=== PATIENT | female | born 1950 | race Caucasian/White ===

== ENCOUNTER 2021-11-15 09:12 | Emergency (ER) | payer MEDICARE, SELFPAY ==
--- NOTE | ~2021-11-15 | US_ITS ---
EXAMINATION: US VENOUS ULTRASOUND WITH DOPPLER LOWER EXTREMITY, LEFT CLINICAL INFORMATION: Knee pain and calf swelling. COMPARISON: None TECHNIQUE: Ultrasound of the deep veins is performed from the hip to the calf with compression sonography and color and pulse Doppler assessment. Spectral analysis with color-flow imaging is performed. FINDINGS: There is normal venous compression and respiratory variation and augmented flow. The visualized common femoral vein, superficial femoral vein, profunda femoral vein, popliteal vein, and the trifurcation region shows no evidence of deep venous thrombosis. There is no significant popliteal fossa cyst. If the patient's symptoms persist, followup ultrasound in 5 days 7 days might be of value to exclude proximal propagation from a non-visualized calf vein. US/US venous duplex LE LT IMPRESSION: No DVT demonstrated in the left lower extremity.
--- NOTE | ~2021-11-15 | XR_ITS ---
EXAMINATION: XR KNEE, LEFT CLINICAL INFORMATION: Left knee pain COMPARISON: None TECHNIQUE: Four views of the left knee. FINDINGS: The tricompartment joint space is maintained normal. There is mild suprapatellar joint effusion. No loose bodies of bony erosive changes. There is anterior superior patellar enthesophyte. Also visualized is small calcification adjacent to the lateral femoral condyle and the fibular head likely old injury from the lateral collateral ligament. XR/XR knee LT 4V IMPRESSION: No acute fracture or dislocation. Calcification along the lateral femoral condyle and lateral fibular head likely old tibiofibular ligament injury. Anterior superior patellar enthesophyte. Mild suprapatellar joint effusion.
[2021-11-15 10:12] VITALS: BP 146/78; PULSE 83; RESP 18; TEMP 37.2; O2SAT 97; BMI 31.8
--- NOTE | 2021-11-15 11:05 | ED.LOWEXIN ---
HPI - Extremity Injury (Lower) General Chief Complaint: Extremity Injury, Lower Stated Complaint: knee pain Time Seen by Provider: 11/15/21 10:50 Source: patient Mode of arrival: ambulatory Limitations: no limitations History of Present Illness HPI Narrative: 71 years old female came in for evaluation of left knee and left leg pain. Patient was taking Eliquis for atrial fibrillation, patient is status post ablation and Eliquis was discontinued by her primary doctor last dose the patient took 3 days ago, patient started to have left knee/left leg pain for the past 3 days, declined any prolonged immobilization, no swelling, no lower extremities injury or trauma. No chest pain, no shortness of breath. Related Data Allergies Allergy/AdvReac Type Severity Reaction Status Date / Time No Known Allergies Allergy Verified 11/15/21 10:12 Review of Systems Review of Systems: All other systems are reviewed and are negative Constitutional: Reports as per HPI and Reports no additional constitutional complaints Eyes: Reports as per HPI and Reports no additional eye complaints Reports system reviewed and no additional complaints, except as documented Cardiovascular: Reports as per HPI and Reports no additional cardiovascular complaints Respiratory: Reports as per HPI and Reports no additional respiratory complaints Gastrointestinal: Reports as per HPI and Reports no additional gastrointestinal complaints Genitourinary: Reports no additional female genitourinary complaints Musculoskeletal: Reports no additional musculoskeletal complaints Skin/Breast: Reports system reviewed and no additional complaints, except as docu Psychiatric: Reports no additional psychiatric complaints Endocrine: Reports no additional endocrine complaints Hematologic/Lymphatic: Reports no additional hematologic/lymphatic complaints Allergic/Immunologic: Reports no additional allergic/immunologic complaints Reports system reviewed and no additional complaints, except as documented and Reports Abnormal speech present [facility] Social History Social History Alcohol intake: never Patient Tobacco Use Status: Never used Tobacco Use of substances other than those prescribed or required for medical reasons: No Advance Directives: No Advance Directives Information Provided: No Physical Exam Vital Signs: Vital Signs: Last Vital Signs Temp 98.1 F 11/15/21 11:40 Pulse 65 11/15/21 11:40 Resp 18 11/15/21 11:40 BP 132/76 11/15/21 11:40 Pulse Ox 97 11/15/21 11:40 BMI result Body Mass Index 31.8 Vital signs have been reviewed as appeared to be correct. Blood pressure normal. Heart rate normal. Respiration rate normal. Temperature normal. Oxygen saturation normal. Appearance: Alert. Oriented X3. No acute distress. Head: Normal external exam. Normocephalic. Atraumatic. No Walton signs noted. No raccoon eyes noted Eyes: PERRLA. EOMI. Conjunctiva and sclera normal. Eyelids normal. ENT: TM's Normal. Pharynx normal. Uvula midline. Moist mucous membranes. No trismus noted. No drooling noted. No muffled voice noted. Neck: Normal inspection. Neck supple. FROM. No adenopathy. Thyroid Normal. No meningeal signs. No neck mass noted. CVS: Normal heart rate and rhythm. Heart sound normal. No murmurs noted. Pulses normal throughout. Respiratory: No respiratory distress. Painless inspiration. Breath sounds normal. No wheezes/rales/rhonchi noted. Chest nontender. No accessory muscle usage noted or decreased air movement noted. Abdomen: Soft and nontender. Bowel sounds normal in all 4 quadrants. No distention noted. No organomegaly noted. No visible injury noted. Back: No CVA tenderness. Full range of motion noted. Skin: Skin warm and dry. Normal skin color. Normal skin turgor. No rashes/lesions/lacerations noted. Extremities: No lower extremity edema. Extremities exhibit normal range of motion. Extremities nontender. Neuro: Oriented X 3. Cranial nerve exam: II-XII are grossly intact No motor deficit. No sensory deficit. Reflexes normal. Course Course Course Narrative: Assessment and plan. 71-year-old female came in with left lower extremities pain after Eliquis was discontinued was a concern of DVT. Patient had a ultrasound of her left lower extremities showed no DVT, patient also had left knee x-ray shows no acute pathology. Will discharge to follow-up with PCP and use Tylenol if needed for pain. MDM - Extremity Injury (Lower) Imaging Data Left leg ultrasound: Attestation: I personally reviewed and interpreted this imaging study as follows: Radiologist's impression: No DVT. Left knee x-ray: Attestation: I personally reviewed and interpreted this imaging study as follows: Radiologist's impression: No acute fracture or dislocation. ?Calcification along the lateral femoral condyle and lateral fibular head likely old tibiofibular ligament injury. ?Anterior superior patellar enthesophyte. Mild suprapatellar joint effusi Discharge Plan Discharge Clinical Impression: Arthralgia of knee, left Patient Disposition: Home, Self-Care Instructions: Arthralgia (ED) Referrals: Elva Velasquez MD [Primary Care Provider] - 2 days
[2021-11-15 11:40] VITALS: BP 132/76; PULSE 65; RESP 18; TEMP 36.7; O2SAT 97
--- NOTE | 2021-11-15 11:51 | PC.NURSE ---
pt a&ox3, vss, c/o new left back on knee pain starting around 2 weeks ago. pt doesn't have a correlating reason for the pain, unknown cause. xrs obtained, report pending.
== END 2021-11-15 12:25 | disposition home or self-care (01) ==
PROVIDERS: Emergency Provider Emergency Medicine; PCP Internal Medicine
DX: M25.562 Pain in left knee (principal); M79.605 Pain in left leg
CPT/HCPCS: 73564; 93971; 99284

== ENCOUNTER 2024-06-27 09:42 | Outpatient (REF) | payer MEDICARE, SELFPAY ==
--- NOTE | ~2024-06-27 | XR_ITS ---
EXAMINATION: XR KNEE, RIGHT CLINICAL INFORMATION: Right knee pain. COMPARISON: None available. TECHNIQUE: Four views of the right knee. FINDINGS: Mild medial compartment joint space narrowing. Tricompartmental marginal osteophytes. No acute fracture or dislocation. No concerning lytic or blastic osseous lesion. Small joint effusion. Superior patellar enthesophytes. XR/XR knee RT 4V IMPRESSION: [id number] tricompartmental osteoarthritis. Small joint effusion. Electronically signed by: Keo Pollack MD 06/27/2024 11:34 AM ROXANNE
== END 2024-06-27 09:43 | disposition home or self-care (01) ==
LOC: HO.HMGCX 09:42
PROVIDERS: PCP Internal Medicine; Visit Provider Nurse Practitioner Family
DX: M25.561 Pain in right knee (principal); S86.911A Strain of unspecified muscle(s) and tendon(s) at lower leg level, right leg, initial encounter
CPT/HCPCS: 73564; 99212

== ENCOUNTER 2024-06-27 09:42 | Outpatient (AMB) | payer MEDICARE, SELFPAY ==
[2024-06-27 09:45] VITALS: BP 128/76; PULSE 70; O2SAT 96
--- NOTE | 2024-06-27 09:45 | MHC.OFFWIV ---
Intake Vital Signs 06/27/24 09:45 Height 5 ft 3 in BP 128/76 Blood Pressure Location Rt brachial Position Sitting Pulse 70 Pulse Source Pulse Oximeter Pulse Oximetry (%) 96 Oxygen Delivery Method Room Air Intake Visit Reasons: [employer] Rt knee pain Intake Note: pt is here for right knee pain Patient Tobacco Use Status: Never used Tobacco Allergies No Known Allergies Allergy (Verified 06/27/24 09:46) Do you need a note to return to daycare/school/sports/work: No HPI HPI Comments History of Present Illness Details 73 y/o female patient who presents to the walk in clinic with c/o right knee pain since Sun. Denies injury or trauma. [facility] Social History Alcohol intake: never Patient Tobacco Use Status: Never used Tobacco Review of Systems Const All systems reviewed & are unremarkable except as noted in HPI and below Physical Exam Vital Signs: Last Vital Signs Pulse 70 06/27/24 09:45 BP 128/76 06/27/24 09:45 Pulse Ox 96 06/27/24 09:45 Oxygen Delivery Method Room Air 06/27/24 09:45 Const General: cooperative and no acute distress Nutritional Appearance: overweight Orientation/consciousness: patient oriented x3 Neuro General: patient oriented x3 and moves all extremities Gait exam (Neuro): Shuffling gait present (due to pain right knee) Extrem Right lower extremity: knee (Limited ROM due to pain) Details: tenderness Location: of the patella and of the lateral joint line; no swelling Left lower extremity: normal to inspection and full ROM Psych Speech and movement: Normal speech and movement present Assessment & Plan Assessment & Plan (1) Strain of right knee: Code(s): S86.911A - Strain of unspecified muscle(s) and tendon(s) at lower leg level, right leg, initial encounter Qualifiers: Encounter type: initial encounter Qualified Code(s): S86.911A - Strain of unspecified muscle(s) and tendon(s) at lower leg level, right leg, initial encounter Plan: Knee Brace provided. Ordered Xray knee IceHot Rest joint. NSAIDs for pain relief. Medications: New lidocaine 5% leave on most painful area for up to 12 hrs 1 patch topical DAILY 30 ea 0RF S86.911A - Strain of unspecified muscle(s) and tendon(s) at lower leg level, right leg, initial encounter meloxicam 7.5 mg PO DAILY 20 tabs 0RF S86.911A - Strain of unspecified muscle(s) and tendon(s) at lower leg level, right leg, initial encounter acetaminophen 1,000 mg (2 x 500 mg) PO Q6H PRN 60 caps 0RF pain S86.911A - Strain of unspecified muscle(s) and tendon(s) at lower leg level, right leg, initial encounter Coding Level of Care Code Est Pt Level 4 (69568) Diagnoses Strain of right knee, initial encounter S86.911A Encounter type: initial encounter Time Spent (min) 20
== END 2024-06-27 10:56 | disposition home or self-care (01) ==
PROVIDERS: PCP Internal Medicine; Visit Provider Nurse Practitioner Family
DX: S86.911A Strain of unspecified muscle(s) and tendon(s) at lower leg level, right leg, initial encounter (principal)

== ENCOUNTER 2025-02-06 14:58 | Emergency (ER) | payer MEDICARE, SELFPAY ==
--- NOTE | ~2025-02-06 | US_ITS ---
CLINICAL HISTORY: B L swelling Venous duplex ultrasound bilateral lower extremity Comparison: None provided Findings: The visualized deep veins are fully compressible with normal Doppler color flow and spectral tracings. No popliteal cyst. IMPRESSION: 1. Negative for bilateral lower extremity deep vein thrombosis. This document has been electronically signed by: Virginia Mccartney MD on 02/06/2025 17:52:05
[2025-02-06 15:05] VITALS: BP 135/57; PULSE 74; RESP 16; TEMP 36.3; O2SAT 97; BMI 26.6
--- NOTE | 2025-02-06 15:05 | ED_ITS ---
HPI - General Adult General Chief complaint: Extremity Injury, Lower Stated complaint: Ankles Swelling, R Leg Pain Time Seen by Provider: 02/06/25 16:21 Source: patient and family ( at bedside corroborating history) Mode of arrival: ambulatory Limitations: no limitations History of Present Illness ED Provider: Marina Cash PA-C HPI narrative: 74-year-old female with medical history of AFib S/P ablation (2019) discontinued AC by PCP after procedure, hypothyroidism, HLD, HTN, presents to the ED due to 1 week of bilateral ankle swelling. Patient states she has chronic sciatic pain, noticed 1 week ago she was having increased right sciatic pain during the day and then noticed later that night that both of her ankles were swollen. Patient states her sciatic pain is exacerbated at this time, she states her pain starts at the right upper glute and radiates to the back of her right knee. Patient states that during the course of this week ankles have become more swollen. She states today she was spending time with her children and grandchildren, walking when she felt fatigued and like she needed to sit down. She called her PCP office who recommended she come to the emergency department for further evaluation. She denies chest pain, shortness of breath, lightheadedness, dizziness, nausea, vomiting, bowel/bladder incontinence, black/tarry stool, urinary symptoms. MD complaint: B/L ankle swelling Onset (ago): week(s) (1) Related Data Home Medications ?Medication ?Instructions ?Recorded ?Confirmed cetirizine 10 mg tablet 10 mg PO DAILY 06/27/24 levothyroxine 125 mcg tablet 125 mcg PO DAILY 06/27/24 lisinopril 5 mg tablet 5 mg PO DAILY 06/27/24 simvastatin 10 mg tablet 10 mg PO BEDTIME 06/27/24 Previous Rx's ?Medication ?Instructions ?Recorded acetaminophen 500 mg capsule 1,000 mg (2 x 500 mg) PO Q6H PRN 06/27/24 pain #60 caps lidocaine 5 % topical patch 1 patch topical DAILY #30 ea 06/27/24 meloxicam 7.5 mg tablet 7.5 mg PO DAILY #20 tabs compression socks, medium #2 ea 02/06/25 Allergies Allergy/AdvReac Type Severity Reaction Status Date / Time No Known Allergies Allergy Verified 02/06/25 15:07 Review of Systems 2 Review of Systems: CONST: Negative for fever, body aches and chills. HENT: Negative for neck pain/stiffness, headache, congestion, sore throat, swelling. EYES: Negative for discharge/pain or vision changes. RESP: Negative for cough/hemoptysis and shortness of breath. CV: Negative chest pain, difficulty breathing, palpitations. ABD: Negative pain, nausea, vomiting. : Negative increase frequency, dysuria, blood in urine or stool. MUSC: Negative for muscle aches, edema. EXTREMITIES: B/L ankle swelling, R side leg pain starting at glute radiating down to knee. SKIN: Negative rash, lesions/sores. NEURO: Negative headache, dizziness, weakness. [facility] Past Medical History Attestation statement: The following information was validated with the patient. Source: old records reviewed, obtained from family ( at bedside corroborating history) and nursing notes reviewed Social History Social History Alcohol intake: former Patient Tobacco Use Status: Never used Tobacco Smoked in Last 30 Days: No Use of substances other than those prescribed or required for medical reasons: No Advance Directives: No Advance Directives Information Provided: Yes Do you have a plan to hurt others: No Plan Physical Exam ED Vital Signs: Vital Signs - 24 hr 02/06/25 15:05 02/06/25 18:58 Temperature 97.4 F Pulse Rate 74 62 Respiratory Rate 16 16 Blood Pressure 135/57 L 139/66 Pulse Oximetry 97 97 Oxygen Delivery Method Room Air Room Air BMI result Body Mass Index 26.6 GENERAL APPEARANCE: ?AxOx4, generally well-appearing, no acute distress. HEENT: ?NC, AT. MMM. EOMI, clear conjunctiva, oropharynx clear. NECK: ?Supple without lymphadenopathy.? No stiffness or restricted ROM. HEART:? Normal rate and regular rhythm, normal S1/S1, no m/r/g LUNGS:? CTAB, moving air well. No crackles or wheezes are heard. ABDOMEN: ?Soft, nontender, nondistended with good bowel sounds heard. BACK: No CVAT, no obvious deformity. EXTREMITIES: ?Without cyanosis, clubbing. B/L 1+ ankle edema, no hydrostatic bullae, or weeping skin, edema does not travel up the leg. DP 2+ B/L, no overlying skin changes. NEUROLOGICAL: ?Grossly nonfocal. Alert and oriented, moving all 4 extremities. Observed to ambulate with normal gait. Skin: ?Warm and dry without any rash. Course Course Course Narrative: 02/06/25 1506 AMAN Leo This is a Rapid Medical Examination (RME) performed by Akiko Gorman PA-C in triage. Full HPI, ROS, assessment and treatment plan per primary provider in the Main ED. Hx: 74 yo F here for eval of b/l feet swelling x1 week. also endorses pain extending from right low back, down right leg. called PCP - advised to come to ED for eval. no cp or sob. no thinners. PE/vitals: 2+ pitting edema from feet to mid calf b/l. Plan: labs Medical Decision Making Medical Decision Making MDM Narrative: 4-year-old female with medical history of AFib S/P ablation (2019) discontinued AC by PCP after procedure, hypothyroidism, HLD, HTN, presents to the ED due to 1 week of bilateral ankle swelling. Patient states she has chronic sciatic pain, noticed 1 week ago she was having increased right sciatic pain during the day and then noticed later that night that both of her ankles were swollen. Patient states her sciatic pain is exacerbated at this time, she states her pain starts at the right upper glute and radiates to the back of her right knee. Patient states that during the course of this week ankles have become more swollen. She states today she was spending time with her children and grandchildren, walking when she felt fatigued and like she needed to sit down. She called her PCP office who recommended she come to the emergency department for further evaluation. VSS, nontoxic appearing, in no acute distress. Physical exam reveals bilateral 1+ ankle edema, without skin weeping, without hydrostatic bullae, without overlying skin changes full ROM, sensation is intact. No calf tenderness. Positive straight leg test of the right side, no lumbar paraspinal tenderness. Right proximal glute tender to palpation. Patient without urine/stool incontinence, sensations intact, no weakness - less likely cauda equina. EKG without ST elevation/depression, no T-wave abnormalities, no chest pain. Labs unremarkable, including BNP which was at 45 (WNL) I ordered bilateral ultrasound to rule out DVT as patient has history of AFib but is s/p ablation (2019) not on AC. Bilateral venous duplex ultrasound ordered to rule out clot. Study did not evaluate clot- DVT less likely At this time I suspect dependent edema, with sciatic pain. Contemplated on dose of furosemide, elected against this as BNP was WNL, lungs clear to auscultation bilaterally, no cough, do not suspect CHF at this time. Do not want to dehydrate or cause electrolyte imbalance in this patient at this time. Patient follows closely with PCP. Will prescribed compression stockings, primary substance abuse counselor on hydration, and elevation of legs to allow for fluid drainage and follow up with PCP this next week. Will have patient manage sciatic pain with Tylenol and Motrin, gentle stretching, heat therapy. Patient is understanding and agreeable to the plan. Differential Diagnosis Differential Diagnoses: The differential diagnosis associated with the presentation includes Cauda equina DVT CHF Sciatica Dependent edema Admission/Observation Consideration of admission/observation: Escalation of care including admission/observation considered Lab Data MDM Lab Attestation statement: I reviewed the patient's lab results. 02/06/25 15:33 02/06/25 15:33 Labs: Lab Results 02/06/25 Range/Units 15:33 WBC 4.9 (4.8-10.8) X10*3/uL RBC 4.94 (4.20-5.50) X10*6/uL Hgb 14.5 (12.0-16.0) g/dl Hct 41.6 (37.0-47.0) % MCV 84.2 (80.0-98.0) fL MCH 29.4 (27.0-33.0) pg MCHC 34.9 (31.0-35.0) g/dl RDW 13.4 (11.0-16.0) % Plt Count 232 (160-400) X10*3/uL MPV 8.7 L (9.4-12.3) fL Immature Gran % (Auto) 0.2 (0.0-0.4) % Neut % (Auto) 61.8 (45-73) % Lymph % (Auto) 23.0 (20-40) % [place] % (Auto) 10.1 (2-11) % Eos % (Auto) 3.9 (0-4) % Baso % (Auto) 1.0 (0-2) % Lymph # (Auto) 1.1 L (1.2-4.9) X10*3/uL [place] # (Auto) 0.5 (0.1-1.2) X10*3/uL Eos # (Auto) 0.2 (0.0-0.4) X10*3/uL Baso # (Auto) 0.1 (0.0-0.2) X10*3/uL Abs Immat Gran (auto) 0.01 (0.00-0.03) X10*3/uL Absolute Neuts (auto) 3.0 (2.0-8.3) x10*3/uL Absolute Nucleated RBC 0.000 (0.0-0.012) X10*3/uL Nucleated RBC % (auto) 0.0 (0.0-0.2) /100WBC Sodium 141 (135-145) mmol/L Potassium 4.2 (3.3-5.1) mmol/L Chloride 105 (96-108) mmol/L Carbon Dioxide 28 (22-29) mmol/L Anion Gap 12 (12-20) BUN 13 (9-16) mg/dL Creatinine 0.58 (0.5-1.4) mg/dL Estim Creat Clear Calc 89.3 Estimated GFR > 60 Random Glucose 102 (60-115) mg/dL Calcium 9.6 (8.4-10.2) mg/dL Magnesium 2.3 (1.6-2.6) mg/dL Total Bilirubin 0.7 (0.0-1.0) mg/dL AST 54 H (5-31) U/L ALT 81 H (0-31) U/L Alkaline Phosphatase 69 (39-117) U/L B-Natriuretic Peptide 45 (<100) pg/mL Total Protein 7.1 (6.5-8.0) g/dL Albumin 4.4 (3.5-5.0) g/dL Independent Interpretation I performed an independent interpretation of an: EKG and Ultrasound Interpretation: I independently interpreted the EKG Vent. Rate : 64 BPM Atrial Rate : 64 BPM P-R Int : 288 ms QRS Dur : 132 ms QT Int : 424 ms P-R-T Axes : 58 82 0 degrees QTcB Int : 437 ms Sinus rhythm with 1st degree A-V block Right bundle branch block Radiology Impression Discussion of test interpretation with radiology: I have reviewed the radiologist's reading. Radiologist Impression: Findings: The visualized deep veins are fully compressible with normal Doppler color flow and spectral tracings. No popliteal cyst. IMPRESSION: 1. Negative for bilateral lower extremity deep vein thrombosis. This document has been electronically signed by: Virginia Mccartney MD on 02/06/2025 17:52:05 Dictated By: Virginia Mccartney MD Signed By: <Electronically signed by Virginia Mccartney MD in OV> 02/06/25 0864 Independent Historian Clinical information obtained from an independent historian. History obtained from or confirmed by: Spouse ( at bedside) External Record Review External record reviewed: Inpatient record, Office record and Outpatient record Prescription Management I considered prescription management with: Other (Diuretic, Lasix) Decided not to prescribe Lasix as this is mild dependent edema, will have patient follow up with PCP as she follows them closely. Chronic Conditions Patient?s care impacted by: Hypertension and Other (HLD, hypothyroidism) Discharge Plan Discharge Clinical Impression: Ankle edema, bilateral, Sciatic leg pain Patient Disposition: Home, Self-Care Instructions: Sciatica (ED) Additional Instructions: You were evaluated in the ED today due to bilateral ankle swelling, and worsening sciatic pain. Your lab work was reassuring that there is no acute emergent process going on, you had an ultrasound done of both legs which did not observe any indication of clot. Will prescribe compression stockings, you should wear these daily. You should also elevate your feet above heart level for 20 minute increments several times per day to help swelling go down. For your sciatic pain you can take Tylenol and Motrin every 6 hours, participate in gentle stretching, and heat therapy. You should follow up with your PCP as soon as possible. Please return to the ED if you experience fevers over 100.4?, chest pain, shortness of breath, increased swelling of her ankles, difficulty walking, increased pain of your leg, urinary or bowel incontinence, or any other new/concerning/worsening symptoms. Prescriptions: New (DME) compression socks, medium Misc See Rx Instructions .Route Qty: 2 0RF Rx Instructions: As directed No Action simvastatin 10 mg tablet 10 mg PO BEDTIME lisinopril 5 mg tablet 5 mg PO DAILY cetirizine 10 mg tablet 10 mg PO DAILY levothyroxine 125 mcg tablet 125 mcg PO DAILY acetaminophen 500 mg capsule 1,000 mg PO Q6H PRN (Reason: pain) Qty: 60 0RF lidocaine 5 % adhesive patch,medicated 1 patch topical DAILY Qty: 30 0RF Rx Instructions: leave on most painful area for up to 12 hrs meloxicam 7.5 mg tablet 7.5 mg PO DAILY Qty: 20 0RF Print Language: Occitan
[2025-02-06 15:36] LABS: MANUAL DIFF FLAG NO
[2025-02-06 15:41] LABS: Basophils Absolute Auto 0.1 X10*3/uL (0.0-0.2); Eosinophils Absolute Auto 0.2 X10*3/uL (0.0-0.4); Eosinophils Percent Auto 3.9 % (0-4); Hematocrit 41.6 % (37.0-47.0); Hemoglobin 14.5 g/dl (12.0-16.0); Imm Gran Abs Auto 0.01 X10*3/uL (0.00-0.03); Imm Gran Pct Auto 0.2 % (0.0-0.4); Lymphocytes Absolute Auto 1.1 X10*3/uL (1.2-4.9); Mean Corpuscular HGB Conc 34.9 g/dl (31.0-35.0); Mean Corpuscular Hemoglobin 29.4 pg (27.0-33.0); Mean Corpuscular Volume 84.2 fL (80.0-98.0); Mean Platelet Volume 8.7 fL (9.4-12.3); Monocytes Absolute Auto 0.5 X10*3/uL (0.1-1.2); Monocytes Percent Auto 10.1 % (2-11); Neutrophils Percent Auto 61.8 % (45-73); Platelet Count 232 X10*3/uL (160-400); Red Blood Count 4.94 X10*6/uL (4.20-5.50); Red Cell Distribution Width 13.4 % (11.0-16.0); White Blood Count 4.9 X10*3/uL (4.8-10.8)
[2025-02-06 15:52] LABS: Alanine Aminotransferase 81 U/L (0-31); Albumin Level 4.4 g/dL (3.5-5.0); Alkaline Phosphatase 69 U/L (39-117); Anion Gap 12 (12-20); Aspartate Amino Transferase 54 U/L (5-31); Bilirubin Total 0.7 mg/dL (0.0-1.0); Blood Urea Nitrogen 13 mg/dL (9-16); Calcium 9.6 mg/dL (8.4-10.2); Carbon Dioxide 28 mmol/L (22-29); Chloride 105 mmol/L (96-108); Creatinine Clr Calc Pharmacy 89.3; Estimated Glomerular Filt Rate > 60; Glucose Random 102 mg/dL (60-115); Magnesium 2.3 mg/dL (1.6-2.6); Potassium 4.2 mmol/L (3.3-5.1); Sodium 141 mmol/L (135-145); Total Protein 7.1 g/dL (6.5-8.0)
[2025-02-06 16:01] LABS: B Type Natriuretic Peptide 45 pg/mL (<100)
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
--- NOTE | 2025-02-06 17:09 | ECG_ITS ---
Test Reason : weakness Blood Pressure : */* mmHG Vent. Rate : 64 BPM Atrial Rate : 64 BPM P-R Int : 288 ms QRS Dur : 132 ms QT Int : 424 ms P-R-T Axes : 58 82 0 degrees QTcB Int : 437 ms Sinus rhythm with 1st degree A-V block Right bundle branch block Abnormal ECG No previous ECGs available Referred By: Shreya Gray Electronically Signed By: VITA BURNS
[2025-02-06 18:58] VITALS: BP 139/66; PULSE 62; RESP 16; O2SAT 97
[2025-02-06 20:07] VITALS: BP 151/77; PULSE 63; RESP 16; TEMP 36.7; O2SAT 98
== END 2025-02-06 20:08 | disposition home or self-care (01) ==
PROVIDERS: Physician Assistant Medical; Emergency Provider Emergency Medicine; PCP Internal Medicine
DX: M25.472 Effusion, left ankle (principal); M25.471 Effusion, right ankle; M54.31 Sciatica, right side; M79.604 Pain in right leg; I10 Essential (primary) hypertension; E78.5 Hyperlipidemia, unspecified; E03.9 Hypothyroidism, unspecified
CPT/HCPCS: 36415; 80053; 83735; 83880; 85025; 93005; 93970; 99284

== ENCOUNTER → 2025-02-06 17:08 | Outpatient (BNV) | payer MEDICARE, SELFPAY | PROVIDERS: Emergency Provider Emergency Medicine; PCP Internal Medicine; Visit Provider Specialist | DX: R22.43 Localized swelling, mass and lump, lower limb, bilateral (principal) | CPT/HCPCS: 93970 ==

== ENCOUNTER → 2025-02-06 17:09 | Outpatient (BNV) | payer MEDICARE, SELFPAY | PROVIDERS: Emergency Provider Emergency Medicine; PCP Internal Medicine; Visit Provider Internal Medicine | DX: I44.0 Atrioventricular block, first degree (principal); I45.10 Unspecified right bundle-branch block | CPT/HCPCS: 93010 ==